=== PATIENT | female | born 2000 | race Caucasian/White ===

== ENCOUNTER 2025-08-19 10:41 | Emergency (ER) | payer BC ==
[2025-08-19] MEDS ORDERED: Lidocaine 1% w/Epinephrine 1:100K 20 ML VIAL ONE (10:55)
[2025-08-19] MEDS ORDERED: Bacitracin 1 PK ONE (10:55)
[2025-08-19] MEDS ORDERED: HYDROcodone/Acetaminophen 5/325 mg Tablet ONE (12:08)
[2025-08-19] MEDS ORDERED: Cephalexin 500 MG CAP ONE (12:08)
== END 2025-08-19 13:00 | disposition home or self-care (01) ==
LOC: MADERS 10:41
DX: S01.81XA Laceration without foreign body of other part of head, initial encounter (principal); S50.12XA Contusion of left forearm, initial encounter; Z23 Encounter for immunization; W55.12XA Struck by horse, initial encounter
CPT/HCPCS: 12054; 70450; 90471; 90715